=== PATIENT | female | born 1965 | race Caucasian/White ===

== ENCOUNTER 2016-11-03 13:09 | Emergency (ER) | payer MEDICARE, MEDICAID ==
[~2016-11-03] VITALS: Ht 157.5 cm; Wt 60.9 kg
[2016-11-03 13:12] VITALS: BP 104/69
[2016-11-03] MEDS ORDERED: LIDOCAINE 1%, 20ML SQ ONE (13:30)
[2016-11-03] MEDS ORDERED: DIPH,PERTUSS(ACELL),TET VAC/PF 0.5 ML IM-VACC ONE ×2 (13:30→14:11)
[2016-11-03] MEDS ORDERED: LIDOCAINE 1%, 20ML ONE (13:33)
== END 2016-11-03 14:32 | disposition home or self-care (01) ==
LOC: ED 14:26
DX: S61.012A Laceration without foreign body of left thumb without damage to nail, initial encounter (principal); Z88.5 Allergy status to narcotic agent; W25.XXXA Contact with sharp glass, initial encounter; Y93.89 Activity, other specified; Y92.89 Other specified places as the place of occurrence of the external cause; Y99.8 Other external cause status
CPT/HCPCS: 12001; 90471; 90715; 99283; J3490

== ENCOUNTER 2017-03-30 11:03 | Emergency (ER) | payer MEDICARE, MEDICAID ==
[~2017-03-30] VITALS: Ht 157.5 cm; Wt 59.1 kg
[2017-03-30 11:08] VITALS: BP 104/70
== END 2017-03-30 11:58 | disposition home or self-care (01) ==
LOC: ED 11:50
DX: B02.9 Zoster without complications (principal); Z87.891 Personal history of nicotine dependence
CPT/HCPCS: 99283

== ENCOUNTER 2018-05-03 10:39 | Emergency (ER) | payer MEDICARE, MEDICAID ==
[~2018-05-03] VITALS: Ht 157.5 cm; Wt 59.7 kg
[2018-05-03 10:46] VITALS: BP 103/70
[2018-05-03] MEDS ORDERED: KETOROLAC 30 MG/1 ML IM ONE (11:00)
[2018-05-03] MEDS ORDERED: KETOROLAC 30 MG/1 ML ONE (11:42)
--- NOTE | 2018-05-03 12:13 | NUR ---
PT STATES PAIN IS IMPROVING POST MEDS. NOW ABLE TO TAKE DEEP BREATH. CLEARED FOR D/C. PT AMBULATING WELL UPON DEPARTURE.
== END 2018-05-03 12:40 | disposition home or self-care (01) ==
LOC: ED 12:15
DX: R07.89 Other chest pain (principal); F32.9 Major depressive disorder, single episode, unspecified; Z87.891 Personal history of nicotine dependence; F43.10 Post-traumatic stress disorder, unspecified
CPT/HCPCS: 71111; 96372; 99283; J1885